=== PATIENT | female | born 1960 | race Caucasian/White ===

== ENCOUNTER 2016-11-04 09:14 | Day surgery (SDC) | payer BC ==
[~2016-11-04 09:14] MED LIST: Lactated Ringers 1,000 ML IV SCH
[2016-11-04] MEDS ORDERED: Lidocaine 2% 5 ML SDV ONE (09:57)
[2016-11-04] MEDS ORDERED: fentaNYL 100 MCG/2 ML SDV ONE (09:58)
[2016-11-04] MEDS ORDERED: Propofol 200 MG/20 ML SDV ONE (09:58)
--- NOTE | 2016-11-04 10:07 | PCM.PREANE ---
Preanesthetic Assessment - Anesthesia/Transfusion/Family Hx Anesthesia History: Prior Anesthesia Without Reaction Family History of Anesthesia Reaction: No Transfusion History: No Prior Transfusion(s) Intubation History: Unknown - Review of Systems General: No Symptoms Pulmonary: No Symptoms Cardiovascular: No Symptoms Gastrointestinal: No symptoms Neurological: No Symptoms Other: Reports: None - Physical Assessment O2 Sat by Pulse Oximetry: 94 Respiratory Rate: 16 Vital Signs: Last Vital Signs Temp 37.0 C 11/04/16 09:48 Pulse 90 11/04/16 09:48 Resp 16 11/04/16 09:48 BP 134/72 11/04/16 09:48 Pulse Ox 94 L 11/04/16 09:48 Height: 1.68 m Weight: 87.09 kg ASA Class: 2 Mental Status: Alert & Oriented x3 Airway Class: Mallampati = 2 Dentition: Reports: Normal Dentition Thyro-Mental Finger Breadths: 2 Mouth Opening Finger Breadths: 2 ROM/Head Extension: Full Lungs: Clear to auscultation, Normal respiratory effort Cardiovascular: Regular Rate, Regular Rhythm - Allergies Allergies/Adverse Reactions: Allergies Allergy/AdvReac Type Severity Reaction Status Date / Time No Known Allergies Allergy Verified 11/01/16 12:10 - Blood Blood Available: Yes - Anesthesia Plan Pre-Op Medication Ordered: None - Acknowledgements Anesthesia Type Planned: MAC Pt an Appropriate Candidate for the Planned Anesthesia: Yes Alternatives and Risks of Anesthesia Discussed w Pt/Guardian: Yes Pt/Guardian Understands and Agrees with Anesthesia Plan: Yes PreAnesthesia Questionnaire HEENT History: Reports: Other (See Below) (swallen lymph nodes 0n left side of the neck last 3 months) Other HEENT History: wears glasses Respiratory History: Reports: Pneumonia, Recurrent Genitourinary History: Reports: None 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 [No Known Home Meds] 11/01/16 [History] - CURRENT (IN HOUSE) MEDS Current Meds: Current Medications Lactated Ringer's (Ringers, Lactated) 1,000 mls @ 125 mls/hr IV ASDIRECTED ROXANA Last Admin: 11/04/16 09:47 Dose: 125 mls/hr Discontinued Medications Fentanyl (Sublimaze) Confirm Administered Dose 100 mcg .ROUTE .STK-MED ONE Stop: 11/04/16 09:59 Lidocaine (Xylocaine-Mpf 2%) Confirm Administered Dose 5 ml .ROUTE .STK-MED ONE Stop: 11/04/16 09:58 Propofol (Diprivan 20 Ml) Confirm Administered Dose 400 mg .ROUTE .STK-MED ONE Stop: 11/04/16 09:59
--- NOTE | 2016-11-04 11:28 | PCM.OPNOTE ---
- General Post-Op/Procedure Note Date of Surgery/Procedure: 11/04/16 Operative Procedure(s): colonoscopy Findings: diverticulosis Pre Op Diagnosis: abd pain Post-Op Diagnosis: diverticulosis Anesthesia Technique: Moderate sedation Primary Surgeon: Loco Fregoso Complications: None Condition: Good
--- NOTE | 2016-11-04 11:39 | PCM.POSTAN ---
POST ANESTHESIA ASSESSMENT - MENTAL STATUS Mental Status: alert, oriented - RESPIRATORY Respiratory Status: respiratory rate WNL, airway patent, O2 saturation stable - CARDIOVASCULAR CV Status: pulse rate WNL, blood pressure stable - GASTROINTESTINAL GI Status: no symptoms - POST OP HYDRATION Hydration Status: adequate & stable - OBSERVATIONS Free Text/Narrative:: no anesthesia problems
[2016-11-04 14:08] VITALS: BP 114/63
--- NOTE | 2016-11-04 15:06 | OR ---
SURGEON: Loco Fregoso MD DATE OF PROCEDURE: 11/04/2016 PREOPERATIVE DIAGNOSIS: Abdominal pain. POSTOPERATIVE DIAGNOSIS: Diverticulosis. PROCEDURE: Colonoscopy. FINDINGS: 1. The patient is easily sedated with FIRE PREVENTION INSPECTOR and Diprivan. The patient is soundly snoring. 2. Bowel prep is average to good. Very little liquid stool. No semiformed stool. 3. The patient's colon was rather straight forward. Cecum indicated by ileocecal fold, one-to-one indentation, light immittance, and appendix orifice is not observed. Mucosa was examined upon scope pulling out. The patient has moderate diverticulosis on the left side. No signs or symptoms of diverticulitis and there was no polyp, mass, growth, inflammation, stricture, ulceration, bleeding, AV malformation observed. The patient has mild internal hemorrhoids, no external hemorrhoids. The patient would benefit from repeat colonoscopy 10 years from today or if clinically indicated otherwise. PROCEDURE IN DETAIL: The patient was taken to the endoscopy room. A time out was called, patient identified, and procedure identified. Diprivan was then administrated. Patient went from awake to sleep, hearing doctor talking or door closing is normal. Perineum inspection and digital examination were then performed. A well- lubricated colonoscope was gently inserted through the rectum, advanced past the rectosigmoid junction, the descending colon, splenic flexure, transverse colon, hepatic flexure, ascending colon, arrived to the cecum. Cecum was identified as dictated in the finding. Then the scope was carefully withdrawn while attention was paid to the mucosal surface for any abnormality. Air will be sucked out during the scope withdrawal. At the rectum, retroflexed to examine any rectal diseases, fistula or hemorrhoids. Patient tolerated procedure well. There were no intraoperative complications, and Dr. Fregoso was present throughout the whole procedure. As always, thank you for the kind referral. ELDON / SARAH /[id number]
== END 2016-11-04 11:56 | disposition home or self-care (01) ==
LOC: MW.SDS 09:14
PROVIDERS: ATTEND Surgery
DX: Z12.11 Encounter for screening for malignant neoplasm of colon (principal); K57.30 Diverticulosis of large intestine without perforation or abscess without bleeding; K64.8 Other hemorrhoids; F41.9 Anxiety disorder, unspecified; E66.9 Obesity, unspecified; Z98.890 Other specified postprocedural states; Z68.30 Body mass index [BMI] 30.0-30.9, adult; Z79.899 Other long term (current) drug therapy
CPT/HCPCS: 45378; J3010; J7120; J2704

== ENCOUNTER 2018-07-10 00:25 | Emergency (ER) | payer BC ==
[2018-07-10] MEDS ORDERED: Aspirin 81 MG Tab.Chew PO ONE (00:34)
[2018-07-10] MEDS ORDERED: Sodium Chloride 0.9% 2.5 ML Syringe FLUSH PRN (00:34)
[2018-07-10] MEDS ORDERED: Sodium Chloride 0.9% 10 ML Syringe FLUSH PRN (00:34)
--- NOTE | 2018-07-10 00:38 | EDM.PDOC ---
ED HPI GENERAL MEDICAL PROBLEM - General Chief Complaint: Chest Pain Stated Complaint: CHEST PAIN Time Seen by Provider: 07/10/18 00:26 - History of Present Illness INITIAL COMMENTS - FREE TEXT/NARRATIVE: HISTORY AND PHYSICAL: History of present illness: The patient is a 57-year-old female who has no significant past medical history and no significant surgical history who presents with left-sided chest pain pressure that started about 9:30 PM when she was getting ready to go to bed. The patient tells me she had a completely normal day and did not work today and has had no recent upper respiratory illnesses. She ate her normal meals and had no systemic problems and was getting ready for bed when it started. At its beginning it was a 4/10 and it started on the left side of her chest around her breast and radiated to her back. She did not get sweaty or short of breath there was no nausea diaphoresis and vomiting or lightheadedness. The patient says she took a Pepcid AC but did not take any other medications as before the pain. It continued and has been constant until her current presentation, 3 hours from its onset, and she says it is worse and it as a 7 or 8/10. Patient tells me she had a similar episode to this about 3 weeks ago but that episode woke her from sleep and lasted about 30 minutes. It was in the same location and has the same character but because it was so short lived she did not follow- up with her provider at [facility] or come to the ER. Since she has no leg pain or swelling and no recent long trips and has no significant social or family history of cardiac disease. She takes no prescription medication and has no history of food intolerance. She currently in the ED is having the discomfort and says she is not short of breath and it does not hurt to take a deep breath and she has no other systemic complaints. The patient is active and works on a daily basis and does not get chest pain with her activities. The patient has not been on any long trips or had any immobile behavior over the last few days. The patient says she has had a cholesterol and lipid panel done the past but she says it's been a few years and it was within normal limits. Review of systems: As per history of present illness and below otherwise all systems reviewed and negative. Past medical history: As per history of present illness and as reviewed below otherwise noncontributory. Surgical history: As per history of present illness and as reviewed below otherwise noncontributory. Social history: No reported history of drug or alcohol abuse. Family history: As per history of present illness and as reviewed below otherwise noncontributory. Physical exam: General: Well-developed well-nourished female who is nontoxic and vital signs are noted by me. Her blood pressure is noted to be elevated which is new for her HEENT: Atraumatic, normocephalic, negative for conjunctival pallor or scleral icterus, mucous membranes moist, throat clear, neck supple, nontender, trachea midline. Lungs: Clear to auscultation, breath sounds equal bilaterally, chest nontender. Heart: S1S2, regular rhythm and sightly tachycardic rate of my evaluation but no overt murmurs are appreciated Abdomen: Soft, nondistended, nontender. Negative for masses or hepatosplenomegaly. Negative for costovertebral tenderness. Pelvis: Stable nontender. Genitourinary: Deferred. Rectal: Deferred. Extremities: Atraumatic, negative for cords or calf pain. Neurovascular unremarkable. No pedal edema or leg asymmetry Neuro: Awake, alert, oriented. Cranial nerves II through XII unremarkable. Cerebellum unremarkable. Motor and sensory unremarkable throughout. Exam nonfocal. Diagnostics: EKG CBC CMP d-dimer and lipase INR troponin chest x-ray Therapeutics: IV O2 monitor maintenance IV fluids at 50 mL per hour, 4 baby aspirin after sublingual Zofran With the nitroglycerin administration the patient started having some nausea and vomiting so Zofran was given. Blood pressure is significantly improved with the nitroglycerin. On my reevaluation her chest discomfort is rated as a 2/10 after 2 sublingual nitroglycerin and she says it is significantly improved. I discussed with her all testing results with at bedside and have offered her an observation admission. The patient has discussed the results with her and is choosing to defer and decline observation admission. She prefer to follow-up with Dr. Prieto Cook in the clinic. She understands the risks involved and my concerns and accepts them. Impression: Chest pain, declining admission Definitive disposition and diagnosis as appropriate pending reevaluation and review of above. chest Pain Score (Numeric/FACES): 7 - Related Data Allergies Allergy/AdvReac Type Severity Reaction Status Date / Time No Known Allergies Allergy Verified 07/10/18 00:33 Home Meds: Home Meds . 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 ED EXAM, GENERAL - Physical Exam Exam: See Below (See dictation) Course - Vital Signs Last Recorded V/S: Last Vital Signs Temp 36.5 C 07/10/18 01:30 Pulse 80 07/10/18 01:30 Resp 18 07/10/18 01:30 BP 127/67 07/10/18 01:30 Pulse Ox 98 07/10/18 01:30 - Orders/Labs/Meds Orders: Active Orders 24 hr Category Date Time Status Cardiac Monitoring [RC] . DIRECTED Care 07/10/18 00:33 Active Nitroglycerin [Nitrostat] Med 07/10/18 00:34 Active 0.4 mg SL Q5M PRN Sodium Chloride 0.9% [Normal Saline] 1,000 ml Med 07/10/18 00:45 Active IV ASDIRECTED Sodium Chloride 0.9% [Saline Flush] Med 07/10/18 00:34 Active 10 ml FLUSH ASDIRECTED PRN Sodium Chloride 0.9% [Saline Flush] Med 07/10/18 00:34 Active 2.5 ml FLUSH ASDIRECTED PRN Saline Lock Insert [OM.PC] Stat Oth 07/10/18 00:33 Ordered Medication Orders Sodium Chloride (Normal Saline) 1,000 mls @ 50 mls/hr IV ASDIRECTED ROXANA Last Admin: 07/10/18 00:43 Dose: 50 mls/hr Nitroglycerin (Nitrostat) 0.4 mg SL Q5M PRN PRN Reason: Chest Pain Last Admin: 07/10/18 00:48 Dose: 0.4 mg Admin: 07/10/18 00:41 Dose: 0.4 mg Sodium Chloride (Saline Flush) 10 ml FLUSH ASDIRECTED PRN PRN Reason: Keep Vein Open Sodium Chloride (Saline Flush) 2.5 ml FLUSH ASDIRECTED PRN PRN Reason: Keep Vein Open Labs: Laboratory Tests 07/10/18 07/10/18 07/10/18 Range/Units 00:30 00:30 00:30 WBC 10.99 (4.0-11.0) K/uL RBC 5.01 (4.30-5.90) M/uL Hgb 14.8 (12.0-16.0) g/dL Hct 44.3 (36.0-46.0) % MCV 88.4 (80.0-98.0) fL MCH 29.5 (27.0-32.0) pg MCHC 33.4 (31.0-37.0) g/dL RDW Std Deviation 47.2 (28.0-62.0) fl RDW Coeff of Chaparro 15 (11.0-15.0) % Plt Count 192 (150-400) K/uL MPV 11.80 (7.40-12.00) fL Neut % (Auto) 64.5 (48.0-80.0) % Lymph % (Auto) 25.4 (16.0-40.0) % Williams % (Auto) 9.0 (0.0-15.0) % Eos % (Auto) 0.8 (0.0-7.0) % Baso % (Auto) 0.3 (0.0-1.5) % Neut # (Auto) 7.1 H (1.4-5.7) K/uL Lymph # (Auto) 2.8 H (0.6-2.4) K/uL Williams # (Auto) 1.0 H (0.0-0.8) K/uL Eos # (Auto) 0.1 (0.0-0.7) K/uL Baso # (Auto) 0.0 (0.0-0.1) K/uL Nucleated RBC % 0.0 /100WBC Nucleated RBCs # 0 K/uL INR 1.02 D-Dimer, Quantitative 0.22 (0.0-0.50) mg/L FEU Sodium 139 (136-145) mmol/L Potassium 3.7 (3.5-5.1) mmol/L Chloride 102 (98-107) mmol/L Carbon Dioxide 27.9 (21.0-32.0) mmol/L BUN 16 (7.0-18.0) mg/dL Creatinine 1.0 (0.6-1.0) mg/dL Est Cr Clr Drug Dosing 58.11 mL/min Estimated GFR (MDRD) 57.1 ml/min Glucose 123 H (74-106) mg/dL Calcium 9.9 (8.5-10.1) mg/dL Total Bilirubin 0.7 (0.2-1.0) mg/dL AST 72 H (15-37) IU/L ALT 39 (14-63) IU/L Alkaline Phosphatase 61 (46-116) U/L Troponin I < 0.050 (0.000-0.056) ng/mL Total Protein 8.3 H (6.4-8.2) g/dL Albumin 3.8 (3.4-5.0) g/dL Globulin 4.5 H (2.6-4.0) g/dL Albumin/Globulin Ratio 0.8 L (0.9-1.6) Lipase 212 (73-393) U/L Meds: Medications Generic Name Dose Route Start Last Admin Trade Name Freq PRN Reason Stop Dose Admin Sodium Chloride 1,000 mls @ 50 mls/hr 07/10/18 00:45 07/10/18 00:43 Normal Saline IV 50 mls/hr ASDIRECTED ROXANA Administration Nitroglycerin 0.4 mg 07/10/18 00:34 07/10/18 00:48 Nitrostat SL 0.4 mg Q5M PRN Administration Chest Pain Sodium Chloride 10 ml 07/10/18 00:34 Saline Flush FLUSH ASDIRECTED PRN Keep Vein Open Sodium Chloride 2.5 ml 07/10/18 00:34 Saline Flush FLUSH ASDIRECTED PRN Keep Vein Open Discontinued Medications Generic Name Dose Route Start Last Admin Trade Name Freq PRN Reason Stop Dose Admin Aspirin 324 mg 07/10/18 00:34 07/10/18 00:42 Aspirin PO 07/10/18 00:35 324 mg ONETIME ONE Administration Ondansetron HCl 4 mg 07/10/18 00:56 07/10/18 00:59 Zofran IVPUSH 07/10/18 00:57 4 mg ONETIME ONE Administration Ondansetron HCl Confirm 07/10/18 00:57 07/10/18 01:00 Zofran Administered 07/10/18 00:58 Not Given Dose 4 mg .ROUTE .STK-MED ONE Departure - Departure Time of Disposition: 01:33 Disposition: Home, Self-Care 01 Condition: Good Clinical Impression: Chest pain Qualifiers: Chest pain type: unspecified Qualified Code(s): R07.9 - Chest pain, unspecified - Discharge Information Referrals: Prieto Jordan MD [Primary Care Provider] - Forms: ED Department Discharge Additional Instructions: The following information is given to patients seen in the emergency department who are being discharged to home. This information is to outline your options for follow-up care. We provide all patients seen in our emergency department with a follow-up referral. The need for follow-up, as well as the timing and circumstances, are variable depending upon the specifics of your emergency department visit. If you don't have a primary care physician on staff, we will provide you with a referral. We always advise you to contact your personal physician following an emergency department visit to inform them of the circumstance of the visit and for follow-up with them and/or the need for any referrals to a consulting specialist. The emergency department will also refer you to a specialist when appropriate. This referral assures that you have the opportunity for followup care with a specialist. All of these measure are taken in an effort to provide you with optimal care, which includes your followup. Under all circumstances we always encourage you to contact your private physician who remains a resource for coordinating your care. When calling for followup care, please make the office aware that this follow-up is from your recent emergency room visit. If for any reason you are refused follow-up, please contact the [facility] emergency department at and ask to speak to the emergency department charge nurse. [address] [place] [address] Please contact your her by Dr. Dr. Jordan in the clinic later today and connect with him to get outpatient follow-up as we discussed and have a stress test and further evaluation of tinnitus events. Please take one 325 mg aspirin every day until you're followed up with Dr. Jordan and return to ER as needed and as discussed. - My Orders Last 24 Hours: My Active Orders 07/10/18 00:33 Cardiac Monitoring [RC] . DIRECTED Saline Lock Insert [OM.PC] Stat 07/10/18 00:34 Nitroglycerin [Nitrostat] 0.4 mg SL Q5M PRN Sodium Chloride 0.9% [Saline Flush] 10 ml FLUSH ASDIRECTED PRN Sodium Chloride 0.9% [Saline Flush] 2.5 ml FLUSH ASDIRECTED PRN 07/10/18 00:45 Sodium Chloride 0.9% [Normal Saline] 1,000 ml IV ASDIRECTED - Assessment/Plan Last 24 Hours: My Active Orders 07/10/18 00:33 Cardiac Monitoring [RC] . DIRECTED Saline Lock Insert [OM.PC] Stat 07/10/18 00:34 Nitroglycerin [Nitrostat] 0.4 mg SL Q5M PRN Sodium Chloride 0.9% [Saline Flush] 10 ml FLUSH ASDIRECTED PRN Sodium Chloride 0.9% [Saline Flush] 2.5 ml FLUSH ASDIRECTED PRN 07/10/18 00:45 Sodium Chloride 0.9% [Normal Saline] 1,000 ml IV ASDIRECTED
[2018-07-10] MEDS: Nitroglycerin 0.4 MG Tab.SL SL PRN ×2 (00:41→00:48)
[2018-07-10] MEDS ORDERED: Sodium Chloride 0.9% 1,000 ML IV SCH (00:45)
[2018-07-10] MEDS ORDERED: Ondansetron 4 MG/2 ML SDV IVPUSH ONE (00:56)
[2018-07-10] MEDS ORDERED: Ondansetron 4 MG/2 ML SDV ONE (00:57)
--- NOTE | 2018-07-10 01:08 | CR ---
Indication: Chest pain Technique: A single AP view of the chest was obtained. Comparison: None Findings: The heart is normal in size. The lungs are clear. No infiltrate, pleural effusion, or pneumothorax is identified. Impression: No acute cardiopulmonary process. Dictated by Rochelle Winslow MD @ Jul 10 2018 1:06AM Signed by Dr. Rochelle Winslow @ Jul 10 2018 1:08AM
[2018-07-10 01:12] LABS: CHLORIDE,CL 102 mmol/L (98-107); SODIUM,NA 139 mmol/L (136-145)
[2018-07-10 01:31] VITALS: BP 127/67
== END 2018-07-10 01:35 | disposition home or self-care (01) ==
LOC: MW.ED 00:25
DX: R07.89 Other chest pain (principal)
CPT/HCPCS: 71045; 80053; 83690; 84484; 85025; 85379; 85610; 93005; 96361; 96374; 99285; A9270; J2405; J7040; 99283

== ENCOUNTER 2022-03-28 03:18 | Emergency (ER) | payer SELFPAY ==
[2022-03-28] MEDS ORDERED: Clindamycin Phosphate in D5W 600 MG in Premix Bag 1 BAG IV STA ×2 (03:54)
[2022-03-28] MEDS ORDERED: Diphtheria,Pertussis(Acell),Tetanus Vaccine 0.5 ML Syringe IM ONE (03:54)
[2022-03-28] MEDS ORDERED: Pantoprazole 80 MG in Sodium Chloride 0.9% 10 ML IVPUSH ONE (04:22)
[2022-03-28] MEDS ORDERED: Ondansetron 4 MG/2 ML SDV IVPUSH ONE (04:25)
[2022-03-28] MEDS ORDERED: Ondansetron 4 MG/2 ML SDV ONE (04:27)
[2022-03-28 04:59] LABS: BLOOD UREA NITROGEN,BUN 15 mg/dL (7.0-18.0); CARBON DIOXIDE,CO2 25.4 mmol/L (21.0-32.0); CHLORIDE,CL 100 mmol/L (98-107); ESTIMATED GFR 73 mL/min (>60); GLUCOSE RANDOM 141 mg/dL (74-106); POTASSIUM,K 3.9 mmol/L (3.5-5.1); SODIUM,NA 137 mmol/L (136-145)
[2022-03-28] MEDS ORDERED: Alum Hydro/Mag Hydro/Simeth XS 15 ML, Metoclopramide 5 MG, Lidocaine 2% 5 ML PO ONE ×3 (05:23)
[2022-03-28 06:30] VITALS: BP 142/62; PULSE 86
== END 2022-03-28 05:58 | disposition home or self-care (01) ==
LOC: MW.ED 03:18
DX: K21.9 Gastro-esophageal reflux disease without esophagitis (principal); E66.9 Obesity, unspecified; Z68.27 Body mass index [BMI] 27.0-27.9, adult; Z23 Encounter for immunization
CPT/HCPCS: 36415; 71045; 80053; 83690; 84484; 85025; 90471; 93005; 96374; 96375; 99285; A9270; C9113; J2405; J3490; 93010; 99283